=== PATIENT | female | born 2000 | race African-American/Black ===

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

== ENCOUNTER → 2018-12-05 | Outpatient (REF) | payer OTHER ==
[~2018-12-05] MED LIST: MACR100C43 PO; PRENTAB45 PO; PYRI1TAB5 PO; REGL10TA6 PO
[2018-12-05 22:49] LABS: CHLAMYDIA DNA AMPLIFICATION POSITIVE (NEGATIVE); GC DNA AMPLIFICATION NEGATIVE (NEGATIVE)
== END ==
LOC: M SFHCLERA 17:13
PROVIDERS: ATTEND Physician Assistant
DX: J02.9 Acute pharyngitis, unspecified (principal)

== ENCOUNTER 2020-03-31 11:25 | Emergency (ER) | payer MEDICAID, OTHER ==
[~2020-03-31] VITALS: Ht 160 cm; Wt 87.5 kg
[2020-03-31 12:28] LABS: URINE PREG TEST NEGATIVE (NEGATIVE)
[2020-03-31] MEDS ORDERED: BACT800T5 PO (12:39)
[2020-03-31] MEDS ORDERED: PYRI1TAB5 PO (12:39)
[2020-03-31 12:46] VITALS: BP 126/79
== END 2020-03-31 12:48 | disposition home or self-care (01) ==
LOC: M ED 11:25
DX: N39.0 Urinary tract infection, site not specified (principal)